=== PATIENT | female | born 1980 | race American Indian/Alaskan Native ===

== ENCOUNTER 2019-07-02 06:09 | Day surgery (SDC) | payer BC ==
[2019-07-02] MEDS ORDERED: ASPIRIN EC 325 MG TAB PO NR (06:52)
[2019-07-02] MEDS ORDERED: SODIUM CHLORIDE 0.9% 500 ML 500 ML IV SCH (07:00)
[2019-07-02] MEDS ORDERED: HEPARIN/NS 5000 UNIT/500ML 1,000 ML IR ONE (08:13)
[2019-07-02] MEDS ORDERED: LIDOCAINE (2%) 20 MG/1 ML VIAL 20 ML MDV INFILTRATI ONE (08:13)
[2019-07-02] MEDS ORDERED: HEPARIN 10,000 UNITS/10 ML VIAL ONE (08:13)
[2019-07-02] MEDS ORDERED: NITROGLYCERIN SYRINGE 0 ML ONE (08:13)
[2019-07-02] MEDS: MIDAZOLAM 2 MG/2 ML INJ ONE ×2 (08:56→09:02)
[2019-07-02] MEDS: fentaNYL 100 MCG/2 ML INJ ONE ×2 (08:56→09:02)
[2019-07-02] MEDS: VERAPAMIL 5 MG/2 ML INJ ONE ×2 (08:58→09:03)
--- NOTE | 2019-07-02 09:45 | Cardiac Catherization Report ---
INDICATION FOR PROCEDURE: A 39-year-old -[place] female with history of hypertension and atypical chest pain. She has abnormal stress EKG with [address] depressions suggestive of ischemia. Hence, cardiac catheterization was scheduled for evaluation of atypical chest pains and abnormal stress EKG. The patient is aware of the procedure, potential complications and alternatives of therapy available. DESCRIPTION OF PROCEDURE: The patient was brought to the catheterization laboratory in a fasting condition. The patient was evaluated for moderate sedation and was felt to be appropriate candidate for moderate sedation. Received IV Versed and fentanyl for sedation. Subsequently, sterile drapes were applied and local anesthesia was achieved using 2% Xylocaine in the right radial artery area, the right wrist area. Right radial artery puncture was made using 21-gauge arterial puncture needle. Subsequently, 5-Hungarian slender sheath was introduced. A 5-Hungarian multipurpose catheter was used to obtain the angiograms of the left ventricle done in ARELLANO projection using hand injection followed by obtaining the angiograms of the left coronary artery using a 5-Hungarian TIG catheter and angiograms of the right coronary artery were obtained using the 6-Hungarian JR4 catheter. At the end of the procedure, catheter and sheath were removed. The patient was monitored throughout the procedure with EKG monitoring, hemodynamic monitoring and pulse oximetry. The patient tolerated the procedure well. At the end of the procedure, the patient is communicating normally, breathing normally and no side effects from moderate sedation was noted. The patient's moderate sedation started at 8:56 a.m. and ended at 9:13 a.m. The patient was transferred to the room in stable condition. Radial band was applied for hemostasis. No untoward complications were noted. Following findings were noted. HEMODYNAMICS: 1. Opening aortic pressure 133/76. Left ventricular pressure 134/22. No gradient across the aortic valve. Estimated ejection fraction 55%. 2. Left ventriculogram done in ARELLANO projection showed normal sized left ventricle with normal contractility. End-diastolic and end-systolic volumes are normal. End-diastolic pressure is elevated up to 22 mmHg. 3. Right coronary artery, dominant vessel, appears to be angiographically smooth and normal, arises normally. 4. Left coronary artery arises normally from left coronary cusp. Left main, LAD and its branches and circumflex artery and its branch are angiographically smooth and normal. FINAL IMPRESSION: 1. Normal sized left ventricle with normal contractility with elevated end diastolic pressure. 2. Normal coronary anatomy. The patient tolerated the procedure well. No untoward complications were noted. At this time, it was felt the abnormal stress EKG is false positive. The patient will be continued on risk factor modifications. Findings were explained to the patient. JOB# [id number] SAPNA/NTS
[2019-07-02 12:32] VITALS: BP 120/61
--- NOTE | 2019-07-02 12:39 | Short Stay Summary ---
Short Stay Documentation Date of service: 07/02/19 - History H&P: obtained from office - Allergies and Medications Current Medications: Allergies methyldopa [From [place]] Allergy (Severe, Verified 07/02/19 07:08) Angioedema Home Medications Medication Instructions Recorded Confirmed Last Taken Type Escitalopram [Lexapro] 10 mg PO DAILY 07/02/19 07/02/19 07/01/19 History 10 mg Nebivolol HCl [Bystolic] 20 mg PO DAILY 07/02/19 07/02/19 07/02/19 05:30 History Spironolactone [Aldactone] 100 mg PO DAILY 07/02/19 07/02/19 07/02/19 05:30 History 100 mg hydrOXYzine HCL [Atarax] 10 mg PO PRN PRN 07/02/19 07/02/19 07/02/19 05:30 History Active Medications Sodium Chloride (Nacl 0.9% 500 Ml) 500 mls @ 50 mls/hr IV DIRECT MIRTHA Stop: 07/02/19 16:59 - Brief post op/procedure progress note Date of procedure: 07/02/19 Pre-op diagnosis: cp; abnormal stress test Post-op diagnosis: other (normal coronaries) Anesthesia: local Estimated blood loss: none Condition: stable - Disposition Condition at discharge: Good Disposition: [id number] TO HOME OR SELFCARE - Discharge Diagnoses (1) Normal coronary arteries Status: Chronic (2) HTN (hypertension) Status: Chronic Short Stay Discharge Plan Activity: advance as tolerated Wound: open to air, keep clean and dry, per your surgeon's advice Follow up with: CHICA MARCH MD [Primary Care Provider] - 7 Days Forms: CardCath PCI D/C Instructions
== END 2019-07-02 13:10 | disposition home or self-care (01) ==
LOC: CATHLABREC 06:09
PROVIDERS: ATTEND Internal Medicine
DX: R07.89 Other chest pain (principal); R94.39 Abnormal result of other cardiovascular function study; I10 Essential (primary) hypertension; G47.30 Sleep apnea, unspecified; F41.9 Anxiety disorder, unspecified; Z82.61 Family history of arthritis; Z90.49 Acquired absence of other specified parts of digestive tract; Z79.899 Other long term (current) drug therapy; Z83.3 Family history of diabetes mellitus; Z80.8 Family history of malignant neoplasm of other organs or systems; Z82.49 Family history of ischemic heart disease and other diseases of the circulatory system; Z86.2 Personal history of diseases of the blood and blood-forming organs and certain disorders involving the immune mechanism; Z88.8 Allergy status to other drugs, medicaments and biological substances; Z98.890 Other specified postprocedural states
CPT/HCPCS: 93005; 93010; 93458; 99156; C1887; C1894; J1644; J2250; J3010; J7040; Q9967